=== PATIENT | male | born 1955 | race Caucasian/White ===

== ENCOUNTER 2022-05-17 10:06 | Day surgery (SDC) | payer MEDICARE ==
[2022-05-13 13:28] VITALS: BMI 28.7
[2022-05-17] MEDS ORDERED: PROPOFOL 20 ML ONE (11:41)
[2022-05-17] MEDS ORDERED: Bupivacaine PF 0.5% 30 ML VIAL ONE (11:53)
[2022-05-17] MEDS ORDERED: CEFAZOLIN 2 GM VIAL ONE (12:01)
== END 2022-05-17 14:50 | disposition home or self-care (01) ==
LOC: CSHSDC 10:06
PROVIDERS: ATTEND Podiatrist Foot & Ankle Surgery
PROC: 0SGN04Z Fusion of Left Metatarsal-Phalangeal Joint with Internal Fixation Device, Open Approach (ICD-10-PCS; principal; 2022-05-17)
DX: M20.12 Hallux valgus (acquired), left foot (principal); M21.612 Bunion of left foot; I10 Essential (primary) hypertension; E78.5 Hyperlipidemia, unspecified; E11.9 Type 2 diabetes mellitus without complications; Z79.84 Long term (current) use of oral hypoglycemic drugs
CPT/HCPCS: 28750; 73620; C1713; J2704; S0020

== ENCOUNTER 2022-07-09 11:24 | Day surgery (SDC) | payer MEDICARE ==
[2022-07-07 13:29] VITALS: BMI 29.8
[2022-07-09] MEDS ORDERED: Midazolam HCl 2 mg/2 ml Vial ONE (13:06)
[2022-07-09] MEDS ORDERED: Famotidine/PF 20 mg/2ml Vial ONE (13:06)
[2022-07-09] MEDS ORDERED: CEFAZOLIN 2 GM VIAL ONE (13:17)
[2022-07-09] MEDS ORDERED: Fentanyl 100 MCG/2 ML VIAL ONE (13:18)
[2022-07-09] MEDS ORDERED: Lidocaine 2% PF 5 ML VIAL ONE (13:18)
[2022-07-09] MEDS ORDERED: PROPOFOL 20 ML ONE (13:18)
[2022-07-09] MEDS ORDERED: Dexamethasone 4 mg/ml Vial ONE (13:19)
[2022-07-09] MEDS ORDERED: Ondansetron PF 4 MG/2 ML Vial ONE (13:19)
[2022-07-09] MEDS ORDERED: Ketorolac Tromethamine 30 MG/ML VIAL ONE (13:43)
[2022-07-09] MEDS ORDERED: ePHEDrine Sulfate 50 MG/10 ML VIAL ONE (13:47)
[2022-07-09] MEDS ORDERED: Neomycin-Polymyxin 1 ML AMP ONE (13:54)
== END 2022-07-09 16:20 | disposition home or self-care (01) ==
LOC: CSHSDC 11:24
PROVIDERS: ATTEND Podiatrist Foot & Ankle Surgery
PROC: 0SGN04Z Fusion of Left Metatarsal-Phalangeal Joint with Internal Fixation Device, Open Approach (ICD-10-PCS; principal; 2022-07-09)
PROC: 0QBP0ZZ Excision of Left Metatarsal, Open Approach (ICD-10-PCS; 2022-07-09)
DX: M20.12 Hallux valgus (acquired), left foot (principal); M21.612 Bunion of left foot; E78.5 Hyperlipidemia, unspecified; E11.9 Type 2 diabetes mellitus without complications; Z79.84 Long term (current) use of oral hypoglycemic drugs; Z79.899 Other long term (current) drug therapy
CPT/HCPCS: 28110; 28750; 73620; C1713; J1100; J1885; J2001; J2250; J2405; J2704; J3010; S0028

== ENCOUNTER 2022-09-10 12:00 | Inpatient (IN) | payer MEDICARE ==
[2022-09-10] MEDS ORDERED: Cefepime 2 GM VIAL ONE (13:02)
[2022-09-10 13:14] LABS: #Eosinphils 0.2 10x3/uL (0.0-0.5); #Neutrophils 5.1 10x3/uL (1.5-8.4); %Basophils 0.3 % (0.0-2.0); %Eosinophils 2.3 % (0.0-6.0); %Lymphocytes 18.7 % (18.0-47.0); %Monocytes 12.5 % (0.0-10.0); %Neutrophils 65.8 % (40.0-75.0); Hemoglobin 13.2 g/dL (13.5-17.5); Mean Corpuscular HGB CONC 32.5 g/dL (32.0-36.0); Mean Corpuscular Volume 95.3 fl (81.2-95.1); Mean Platelet Volume 10.7 fl (7.4-10.4); Platelet Count 176 10x3/uL (150-450); RBC Distribution Width 13.3 % (11.5-14.5); Red Blood Cell (RBC) Count 4.26 10x6/uL (4.32-5.72); White Blood Cell (WBC) Count 7.8 10x3/uL (3.5-10.5)
[2022-09-10] MEDS ORDERED: VANCOMYCIN 2 GRAM/400 ML BAG 2 GM in Premix Bag 1 BAG IVPB SCH (13:15)
[2022-09-10 13:30] LABS: ALT (SGPT) 17 U/L (8-55); AST (SGOT) 20 U/L (5-34); Albumin 3.9 g/dL (3.4-4.8); Alkaline Phosphatase 78 U/L (40-110); Anion Gap 15 mmol/L (10-20); BUN (Urea Nitrogen) 24 mg/dL (8.4-25.7); Bilirubin, Total 1.3 mg/dL (0.2-1.2); Calc. Creatinine Clearance 0 mL/min (70-130); Calcium 9.6 mg/dL (7.8-10.44); Carbon Dioxide 24 mmol/L (23-31); Chloride 103 mmol/L (98-107); Estimated GFR 81; Globulin 3.4 g/dL (2.4-3.5); Glucose 97 mg/dL (80-115); Potassium 4.2 mmol/L (3.5-5.1); Protein, Total 7.3 g/dL (5.8-8.1); Sodium 138 mmol/L (136-145)
[2022-09-10 17:16] VITALS: BMI 30.5
[2022-09-10] MEDS ORDERED: Dextrose 5% in Water 1,000 ML IV PRN (17:16)
[2022-09-10] MEDS ORDERED: Glucagon 1 MG/ML KIT IM PRN (17:16)
[2022-09-10] MEDS ORDERED: Dextrose 50% Abboject 50 ML SYRINGE SLOW IVP PRN (17:16)
[2022-09-10] MEDS ORDERED: Ondansetron PF 4 MG/2 ML Vial IVP PRN (17:17)
[2022-09-10] MEDS ORDERED: Ondansetron ODT 4 MG TAB PO PRN (17:17)
[2022-09-10] MEDS: Pregabalin 50 MG CAP PO SCH (20:06)
[2022-09-10] MEDS: Atorvastatin Calcium 10 MG TAB PO SCH (20:08)
[2022-09-10] MEDS ORDERED: HumaLOG 300 UNITS/3 ML VIAL SC PRN (21:00)
[2022-09-11] MEDS ORDERED: Cefepime 1 GM VIAL ONE (01:42)
[2022-09-11] MEDS ORDERED: Vancomycin 1.5 GRAM/300 ML BAG ONE ×2 (01:42)
[2022-09-11] MEDS: Cefepime 1 GM in Sodium Chloride 0.9% 100 ML IVPB SCH ×2 (01:45→14:24)
[2022-09-11] MEDS: Vancomycin 1.5 GRAM/300 ML BAG 1.5 GM in Premix Bag 1 BAG IVPB SCH ×2 (02:36→15:09)
[2022-09-11 06:06] LABS: #Eosinphils 0.2 10x3/uL (0.0-0.5); #Monocytes 0.9 10x3/uL (0.0-1.1); #Neutrophils 4.9 10x3/uL (1.5-8.4); %Basophils 0.3 % (0.0-2.0); %Eosinophils 2.6 % (0.0-6.0); %Lymphocytes 16.5 % (18.0-47.0); %Monocytes 12.2 % (0.0-10.0); Hemoglobin 12.7 g/dL (13.5-17.5); Mean Corpuscular HGB CONC 32.4 g/dL (32.0-36.0); Mean Corpuscular Hemoglobin 31.1 pg (27.0-33.0); Mean Corpuscular Volume 96.1 fl (81.2-95.1); Mean Platelet Volume 10.2 fl (7.4-10.4); Platelet Count 159 10x3/uL (150-450); RBC Distribution Width 13.2 % (11.5-14.5); Red Blood Cell (RBC) Count 4.08 10x6/uL (4.32-5.72); White Blood Cell (WBC) Count 7.2 10x3/uL (3.5-10.5)
[2022-09-11 06:17] LABS: ALT (SGPT) 15 U/L (8-55); AST (SGOT) 17 U/L (5-34); Albumin 3.5 g/dL (3.4-4.8); Alkaline Phosphatase 70 U/L (40-110); Anion Gap 15 mmol/L (10-20); BUN (Urea Nitrogen) 18 mg/dL (8.4-25.7); Bilirubin, Total 0.7 mg/dL (0.2-1.2); Calc. Creatinine Clearance 117 mL/min (70-130); Calcium 9.3 mg/dL (7.8-10.44); Carbon Dioxide 21 mmol/L (23-31); Chloride 108 mmol/L (98-107); Estimated GFR 94; Globulin 3.2 g/dL (2.4-3.5); Glucose 86 mg/dL (80-115); Potassium 4.5 mmol/L (3.5-5.1); Protein, Total 6.7 g/dL (5.8-8.1); Sodium 139 mmol/L (136-145)
[2022-09-11] MEDS ORDERED: Aspirin 81 mg Enteric Coated Tablet PO SCH (09:00)
[2022-09-11] MEDS: Acetaminophen 325 MG TAB PO PRN (10:03)
[2022-09-11] MEDS: Pregabalin 50 MG CAP PO SCH ×2 (10:04→20:21)
[2022-09-11] MEDS ORDERED: Docusate 100 MG CAP PO PRN (10:26)
[2022-09-11 12:17] LABS: Hemoglobin A1c 5.9 % (4.0-6.0)
[2022-09-11] MEDS: Atorvastatin Calcium 10 MG TAB PO SCH (20:21)
[2022-09-12 00:57] LABS: #Eosinphils 0.2 10x3/uL (0.0-0.5); #Monocytes 0.8 10x3/uL (0.0-1.1); #Neutrophils 4.9 10x3/uL (1.5-8.4); %Basophils 0.3 % (0.0-2.0); %Eosinophils 2.1 % (0.0-6.0); %Lymphocytes 21.6 % (18.0-47.0); %Neutrophils 64.6 % (40.0-75.0); Hemoglobin 12.7 g/dL (13.5-17.5); Mean Corpuscular HGB CONC 33.4 g/dL (32.0-36.0); Mean Corpuscular Hemoglobin 31.4 pg (27.0-33.0); Mean Corpuscular Volume 93.8 fl (81.2-95.1); Mean Platelet Volume 10.1 fl (7.4-10.4); Platelet Count 186 10x3/uL (150-450); RBC Distribution Width 13.2 % (11.5-14.5); Red Blood Cell (RBC) Count 4.05 10x6/uL (4.32-5.72); White Blood Cell (WBC) Count 7.5 10x3/uL (3.5-10.5)
[2022-09-12 01:01] LABS: Vancomycin, Trough 17.2 ug/mL
[2022-09-12 01:10] LABS: ALT (SGPT) 15 U/L (8-55); AST (SGOT) 17 U/L (5-34); Albumin 3.6 g/dL (3.4-4.8); Alkaline Phosphatase 74 U/L (40-110); Anion Gap 15 mmol/L (10-20); BUN (Urea Nitrogen) 21 mg/dL (8.4-25.7); Bilirubin, Total 0.3 mg/dL (0.2-1.2); Calc. Creatinine Clearance 113 mL/min (70-130); Calcium 8.8 mg/dL (7.8-10.44); Carbon Dioxide 22 mmol/L (23-31); Chloride 107 mmol/L (98-107); Estimated GFR 93; Globulin 2.5 g/dL (2.4-3.5); Glucose 156 mg/dL (80-115); Protein, Total 6.1 g/dL (5.8-8.1); Sodium 140 mmol/L (136-145)
[2022-09-12] MEDS: Cefepime 2 GM in Sodium Chloride 0.9% 100 ML IVPB SCH ×2 (02:38→13:06)
[2022-09-12] MEDS: Vancomycin 1.5 GRAM/300 ML BAG 1.5 GM in Premix Bag 1 BAG IVPB SCH (03:23)
[2022-09-12] MEDS: Pregabalin 50 MG CAP PO SCH ×2 (09:05→21:17)
[2022-09-12] MEDS: HumaLOG 300 UNITS/3 ML VIAL SC PRN (13:05)
[2022-09-12] MEDS: VANCOMYCIN 1.25 GM/250 ML BAG 1.25 GM in Premix Bag 1 BAG IVPB SCH (14:11)
[2022-09-12] MEDS: Atorvastatin Calcium 10 MG TAB PO SCH (21:17)
[2022-09-13] MEDS: Cefepime 2 GM in Sodium Chloride 0.9% 100 ML IVPB SCH (01:07)
[2022-09-13] MEDS: VANCOMYCIN 1.25 GM/250 ML BAG 1.25 GM in Premix Bag 1 BAG IVPB SCH ×2 (01:43→16:00)
[2022-09-13 05:58] LABS: #Eosinphils 0.2 10x3/uL (0.0-0.5); #Monocytes 0.8 10x3/uL (0.0-1.1); #Neutrophils 5.9 10x3/uL (1.5-8.4); %Basophils 0.2 % (0.0-2.0); %Eosinophils 1.8 % (0.0-6.0); %Lymphocytes 17.2 % (18.0-47.0); %Monocytes 9.7 % (0.0-10.0); %Neutrophils 70.5 % (40.0-75.0); Hemoglobin 13.5 g/dL (13.5-17.5); Mean Corpuscular HGB CONC 32.8 g/dL (32.0-36.0); Mean Corpuscular Hemoglobin 30.8 pg (27.0-33.0); Mean Corpuscular Volume 93.6 fl (81.2-95.1); Mean Platelet Volume 9.8 fl (7.4-10.4); Platelet Count 200 10x3/uL (150-450); RBC Distribution Width 13.1 % (11.5-14.5); Red Blood Cell (RBC) Count 4.39 10x6/uL (4.32-5.72); White Blood Cell (WBC) Count 8.4 10x3/uL (3.5-10.5)
[2022-09-13 06:13] LABS: Anion Gap 12 mmol/L (10-20); BUN (Urea Nitrogen) 16 mg/dL (8.4-25.7); Calc. Creatinine Clearance 132 mL/min (70-130); Carbon Dioxide 21 mmol/L (23-31); Chloride 108 mmol/L (98-107); Estimated GFR 97; Glucose 116 mg/dL (80-115); Potassium 4.3 mmol/L (3.5-5.1); Sodium 137 mmol/L (136-145)
[2022-09-13] MEDS: Pregabalin 50 MG CAP PO SCH ×2 (08:42→19:37)
[2022-09-13] MEDS ORDERED: PROPOFOL 20 ML ONE (13:00)
[2022-09-13] MEDS ORDERED: fentaNYL 50 mcg/mL 1 mL Vial ONE (13:00)
[2022-09-13] MEDS ORDERED: Lidocaine 1% PF 5 ML VIAL ONE (13:01)
[2022-09-13] MEDS ORDERED: ePHEDrine Sulfate 50 MG/10 ML VIAL ONE (13:28)
[2022-09-13] MEDS ORDERED: Ondansetron PF 4 MG/2 ML Vial ONE (13:53)
[2022-09-13] MEDS ORDERED: Bupivacaine HCl 0.5%/Epinephrine 1:200,000/PF 30 ml Vial ONE (13:54)
[2022-09-13] MEDS: Morphine 2 MG/ML VIAL SLOW IVP PRN (19:33)
[2022-09-13] MEDS: Atorvastatin Calcium 10 MG TAB PO SCH (19:36)
[2022-09-13] MEDS: CEFAZOLIN 2 GM in Sodium Chloride 0.9% 100 ML IVPB SCH (21:45)
[2022-09-13] MEDS: Acetaminophen 325 MG TAB PO PRN (21:46)
[2022-09-14] MEDS: Morphine 2 MG/ML VIAL SLOW IVP PRN ×2 (00:03→05:01)
[2022-09-14] MEDS: CEFAZOLIN 2 GM in Sodium Chloride 0.9% 100 ML IVPB SCH ×2 (05:03→14:47)
[2022-09-14 05:24] LABS: #Eosinphils 0.2 10x3/uL (0.0-0.5); #Neutrophils 6.4 10x3/uL (1.5-8.4); %Basophils 0.3 % (0.0-2.0); %Monocytes 10.6 % (0.0-10.0); %Neutrophils 69.7 % (40.0-75.0); Hemoglobin 12.7 g/dL (13.5-17.5); Mean Corpuscular Hemoglobin 30.8 pg (27.0-33.0); Mean Corpuscular Volume 93.4 fl (81.2-95.1); Mean Platelet Volume 9.6 fl (7.4-10.4); Platelet Count 199 10x3/uL (150-450); RBC Distribution Width 13.1 % (11.5-14.5); Red Blood Cell (RBC) Count 4.12 10x6/uL (4.32-5.72); White Blood Cell (WBC) Count 9.2 10x3/uL (3.5-10.5)
[2022-09-14 05:38] LABS: Anion Gap 14 mmol/L (10-20); BUN (Urea Nitrogen) 17 mg/dL (8.4-25.7); Calc. Creatinine Clearance 138 mL/min (70-130); Calcium 8.7 mg/dL (7.8-10.44); Carbon Dioxide 22 mmol/L (23-31); Chloride 106 mmol/L (98-107); Estimated GFR 98; Glucose 113 mg/dL (80-115); Potassium 3.9 mmol/L (3.5-5.1); Sodium 138 mmol/L (136-145)
[2022-09-14] MEDS: Pregabalin 50 MG CAP PO SCH (09:54)
[2022-09-14] MEDS: Acetaminophen 325 MG TAB PO PRN (09:55)
[2022-09-14] MEDS: HumaLOG 300 UNITS/3 ML VIAL SC PRN (12:30)
[2022-09-14 16:54] VITALS: BP 180/83; TEMP 98.6
== END 2022-09-14 16:30 | disposition home or self-care (01) | DRG 629 ==
LOC: CSHERS 12:00 → CSHTELE 15:04 → OBSVTOIN 17:08
PROVIDERS: ADMIT Internal Medicine; ATTEND Internal Medicine
PROC: 0QBP0ZZ Excision of Left Metatarsal, Open Approach (ICD-10-PCS; principal; 2022-09-13)
DX: E11.69 Type 2 diabetes mellitus with other specified complication (principal); M86.8X7 Other osteomyelitis, ankle and foot; E11.40 Type 2 diabetes mellitus with diabetic neuropathy, unspecified; E78.5 Hyperlipidemia, unspecified; E66.9 Obesity, unspecified; Z79.84 Long term (current) use of oral hypoglycemic drugs; Z79.82 Long term (current) use of aspirin; Z79.899 Other long term (current) drug therapy; Z90.49 Acquired absence of other specified parts of digestive tract; Z89.422 Acquired absence of other left toe(s); Z68.30 Body mass index [BMI] 30.0-30.9, adult
CPT/HCPCS: 36415; 36416; 80048; 80053; 80202; 83036; 83605; 85025; 87040; 87070; 87077; 87186; 87205; 88305; 88311; 94760; 96365; 96366; 96367; 97139; G0378; J0692; J1650; J1815; J2272; J2405; J2704; J3010; J3370; J3490